=== PATIENT | male | born 1960 | race Hispanic/Latino ===

== ENCOUNTER 2018-01-29 11:22 | Emergency (ER) | payer SELFPAY ==
[2018-01-29] MEDS ORDERED: LIDOCAINE 1% MPF 5 ML VIAL ONE (13:20)
[2018-01-29] MEDS ORDERED: HYDROCODONE/APAP 5/325 MG TAB ONE (13:20)
[2018-01-29] MEDS ORDERED: TETANUS & DIPHTHERIA TOX,ADULT 0.5 ML VIAL ONE (13:21)
[2018-01-29] MEDS ORDERED: BUPIVACAINE 0.5% PF 10 ML VIAL ONE (13:21)
--- NOTE | 2018-01-29 13:24 | RAD REPORT ---
EXAM DESCRIPTION: RAD -Hand Left 3 View - 01/29/2018 12:51 pm CLINICAL HISTORY: Left hand pain status post injury FINDINGS: Comminuted fracture involves second distal phalanx with many fracture fragments. No disloc ation is seen. 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
--- NOTE | 2018-01-29 16:05 | ER ---
Nurse's Notes [facility] Name: Shamika Randall Age: 57 yrs Sex: Male : 1960 Arrival Date: 01/29/2018 Time: 11:25 Bed 14 Private MD: Diagnosis: Laceration without foreign body of left index finger without damage to nail;Displaced fracture of distal phalanx of left index finger Presentation: 01/29 11:46 Presenting complaint: Patient states: Laceration to left index finger with cordless saw hb approx 2 hrs ago. Transition of care: patient was not received from another setting of care. Onset of symptoms was January 29, 2018. Risk Assessment: Do you want to hurt yourself or someone else? Patient reports no desire to harm self or others. Care prior to arrival: None. 11:46 Method Of Arrival: Ambulatory hb 11:46 Acuity: WING 3 hb 12:59 Complicating Factors: There are no complicating factors for this patient. Initial ph Sepsis Screen: Does the patient meet any 2 criteria? No. Patient's initial sepsis screen is negative. Does the patient have a suspected source of infection? No. Patient's initial sepsis screen is negative. Historical: - Allergies: 11:47 No Known Allergies; hb - Immunization history:: Last tetanus immunization: unknown. - Social history:: Smoking status: Patient/guardian denies using tobacco. - Ebola Screening: : No symptoms or risks identified at this time. Screenin:59 Abuse screen: Denies threats or abuse. Denies injuries from another. Nutritional ph screening: No deficits noted. Tuberculosis screening: No symptoms or risk factors identified. Fall Risk None identified. Assessment: 12:58 General: Appears in no apparent distress. comfortable, well groomed, Behavior is calm, ph cooperative, appropriate for age. Pain: Complains of pain in palmar aspect of distal phalanx of left index finger. Neuro: Level of Consciousness is awake, Oriented to person, place, time, situation. Cardiovascular: Capillary refill < 3 seconds Patient's skin is warm and dry. Respiratory: Airway is patent Respiratory effort is even, unlabored, Respiratory pattern is regular, symmetrical. Derm: Skin is healthy with good turgor, Skin is pink, warm \T\ dry. Musculoskeletal: Circulation, motion, and sensation intact. Range of motion: intact in all extremities. Injury Description: Laceration sustained to palmar aspect of distal phalanx of left index finger is 0.5 to 2.5 cm long, not bleeding. 14:20 Reassessment: Patient appears in no apparent distress at this time. Patient and/or ph family updated on plan of care and expected duration. Pain level reassessed. Patient is alert, oriented x 3, equal unlabored respirations, skin warm/dry/pink. Pt resting quietly, SO at bedside. 15:40 Reassessment: Patient appears in no apparent distress at this time. Patient and/or ph family updated on plan of care and expected duration. Pain level reassessed. Patient is alert, oriented x 3, equal unlabored respirations, skin warm/dry/pink. ERP at bedside suturing laceration, pt tolerating well. 16:30 Reassessment: Patient appears in no apparent distress at this time. Patient and/or ph family updated on plan of care and expected duration. Pain level reassessed. Patient is alert, oriented x 3, equal unlabored respirations, skin warm/dry/pink. D/C pending 15 min shot time after IM antibiotics. Vital Signs: 11:47 BP 185 / 92; Pulse 58; Resp 18; Temp 98.6; Pulse Ox 98% ; Weight 102.06 kg; Height 5 hb ft. 10 in. (177.80 cm); Pain 5/10; 13:00 BP 178 / 89; Pulse 54; Resp 18; Pulse Ox 99% on R/A; ph 15:30 BP 164 / 78; Pulse 56; Resp 18; Temp 97.8; Pulse Ox 99% on R/A; ph 11:47 Body Mass Index 32.28 (102.06 kg, 177.80 cm) hb ED Course: 11:25 Patient arrived in ED. as 11:47 Triage completed. hb 11:48 Arm band placed on right wrist. hb 11:56 Chelsea Mukherjee, ERLIN is Primary Nurse. ph 12:18 Layo Malone NP is PHCP. pm1 12:18 Justus Stanton MD is Attending Physician. pm1 12:43 X-ray completed. Portable x-ray completed in exam room. Patient tolerated procedure ml well. 12:47 Hand Left 3 View XRAY In Process Unspecified. EDMS 13:00 Patient has correct armband on for positive identification. Call light in reach. Side ph rails up X 1. Pulse ox on. NIBP on. 16:04 Danny Stewart MD is Referral Physician. pm1 16:38 Dressings: non-adherent dressing x 1 left hand and palmar aspect of distal phalanx of jb1 left index finger. pre-formed finger splint applied to left index finger. Capillary refill was three seconds before and after application of finger splint. 16:55 No provider procedures requiring assistance completed. Patient did not have IV access ph during this emergency room visit. 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 Exp: ph 04/09/2020. Lot #: [id number]. } Route: IM; Site: right deltoid; 14:45 Follow up: Response: No adverse reaction ph 15:20 Drug: Lidocaine (1 %) 5 mg Route: Infiltration; ph 16:00 Follow up: Response: No adverse reaction ph 15:20 Drug: Marcaine (0.5 %) 10 ml Volume: 10 ml; Route: Infiltration; ph 16:00 Follow up: Response: No adverse reaction ph 16:30 Drug: Ancef 1 grams Route: IM; Site: right deltoid; ph 16:50 Follow up: Response: No adverse reaction ph Outcome: 16:05 Discharge ordered by . pm1 16:55 Patient left the ED. ss 16:55 Discharged to home ambulatory, with significant other. ph 16:55 Condition: good 16:55 Discharge instructions given to patient, significant other, Instructed on discharge instructions, follow up and referral plans. medication usage, wound care, Demonstrated understanding of instructions, follow-up care, medications, wound care, Prescriptions given X 3. Signatures: Dispatcher [employer] EDMS Robert Burnett jb1 Natacha Cheatham Melissa ml Smirch, Shelby, RN RN Chelsea Mukherjee RN RN Layo Malone, STEPHIE GENDER STUDIES PROFESSOR pm1 Kyleigh Beltran RN RN hb
--- NOTE | 2018-01-29 16:05 | EDPHYS ---
Physician Documentation [facility] Name: Shamika Randall Age: 57 yrs Sex: Male : 1960 Arrival Date: 01/29/2018 Time: 11:25 Bed 14 Private MD: ED Physician Justus Stanton HPI: 01/29 15:00 This 57 yrs old Male presents to ER via Ambulatory with complaints of pm1 Laceration - Finger. 15:00 The patient or guardian reports a laceration, irregular. The complaints affect the pm1 palmar aspect of distal phalanx of left index finger. Context: The problem was sustained at home, resulted from Circular saw. Onset: The symptoms/episode began/occurred just prior to arrival. Modifying factors: The symptoms are alleviated by pressure to area, the symptoms are aggravated by nothing. Associated signs and symptoms: Pertinent negatives: cyanosis distally, decreased sensation distally, numbness distally, tingling distally. Historical: - Allergies: 11:47 No Known Allergies; hb - Immunization history:: Last tetanus immunization: unknown. - Social history:: Smoking status: Patient/guardian denies using tobacco. - Ebola Screening: : No symptoms or risks identified at this time. ROS: 15:00 Constitutional: Negative for fever, chills, and weight loss, Cardiovascular: Negative pm1 for chest pain, palpitations, and edema, Respiratory: Negative for shortness of breath, cough, wheezing, and pleuritic chest pain, Abdomen/GI: Negative for abdominal pain, nausea, vomiting, diarrhea, and constipation, Back: Negative for injury and pain. 15:00 Neuro: Negative for headache, weakness, numbness, tingling, and seizure. 15:00 MS/extremity: Positive for laceration, of the palmar aspect of distal phalanx of left index finger, Negative for paresthesias, tingling. 15:00 Skin: Positive for laceration(s), of the palmar aspect of distal phalanx of left index finger. Exam: 15:00 Constitutional: This is a well developed, well nourished patient who is awake, alert, pm1 and in no acute distress. Head/Face: Normocephalic, atraumatic. Chest/axilla: Normal chest wall appearance and motion. Nontender with no deformity. No lesions are appreciated. Cardiovascular: Regular rate and rhythm with a normal S1 and S2. No gallops, murmurs, or rubs. Normal PMI, no JVD. No pulse deficits. Respiratory: Lungs have equal breath sounds bilaterally, clear to auscultation and percussion. No rales, rhonchi or wheezes noted. No increased work of breathing, no retractions or nasal flaring. Back: No spinal tenderness. No costovertebral tenderness. Full range of motion. 15:00 Skin: injury, laceration(s), the wound is approximately 3 cm(s), of the palmar aspect of distal phalanx of left index finger, that can be described as no foreign body, irregular. Vital Signs: 11:47 BP 185 / 92; Pulse 58; Resp 18; Temp 98.6; Pulse Ox 98% ; Weight 102.06 kg; Height 5 hb ft. 10 in. (177.80 cm); Pain 5/10; 13:00 BP 178 / 89; Pulse 54; Resp 18; Pulse Ox 99% on R/A; ph 15:30 BP 164 / 78; Pulse 56; Resp 18; Temp 97.8; Pulse Ox 99% on R/A; ph 11:47 Body Mass Index 32.28 (102.06 kg, 177.80 cm) hb Laceration: 16:02 Wound Repair of 3cm ( 1.2in ) subcutaneous laceration to palmar aspect of distal pm1 phalanx of left index finger. Irregularly shaped.. Distal neuro/vascular/tendon intact. Anesthesia: Digital block administered with 4 mls of L[place]/Marcaine. Wound prep: Extensive cleansing with betadine by me, Wound irrigation with saline by me, Wound explored extensively, Copious irrigation. Skin closed with 14 5-0 Prolene using simple sutures and sterile technique. Dressed with tube gauze. Patient tolerated well. MDM: 12:18 Patient medically screened. pm1 16:03 Data reviewed: vital signs. Data interpreted: Pulse oximetry: on room air is 98 %. pm1 Interpretation: normal. Counseling: I had a detailed discussion with the patient and/or guardian regarding: the historical points, exam findings, and any diagnostic results supporting the discharge/admit diagnosis, radiology results, the need for outpatient follow up, for definitive care, a hand specialist, to return to the emergency department if symptoms worsen or persist or if there are any questions or concerns that arise at home. 01/29 12:21 Order name: Hand Left 3 View XRAY; Complete Time: 13:43 pm1 01/29 13:16 Order name: Prolene, Sutures; Complete Time: 13:23 pm1 01/29 13:16 Order name: Dressing - Wound; Complete Time: 16:40 pm1 01/29 13:16 Order name: Gloves, Sterile; Complete Time: 13:23 pm1 01/29 13:16 Order name: Setup Suture Tray; Complete Time: 14:31 pm1 01/29 16:05 Order name: Splint - Finger; Complete Time: 16:40 pm1 Administered Medications: 13:22 Drug: [place] 5 mg-325 mg 1 tabs Route: PO; ph 14:30 Follow up: Response: No adverse reaction; Pain is decreased ph 14:30 Drug: Tetanus-Diphtheria Toxoid Adult 0.5 ml {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 Exp: ph 04/09/2020. Lot #: [id number]. } Route: IM; Site: right deltoid; 14:45 Follow up: Response: No adverse reaction ph 15:20 Drug: Lidocaine (1 %) 5 mg Route: Infiltration; ph 16:00 Follow up: Response: No adverse reaction ph 15:20 Drug: Marcaine (0.5 %) 10 ml Volume: 10 ml; Route: Infiltration; ph 16:00 Follow up: Response: No adverse reaction ph 16:30 Drug: Ancef 1 grams Route: IM; Site: right deltoid; ph 16:50 Follow up: Response: No adverse reaction ph Disposition: 01/30 10:50 Co-signature as Attending Physician, Justus Stanton MD I agree with the assessment and fernando plan of care. Disposition: 01/29/18 16:05 Discharged to Home. Impression: Laceration without foreign body of left index finger without damage to nail, Displaced fracture of distal phalanx of left index finger. - Condition is Stable. - Discharge Instructions: Finger Fracture, Laceration Care, Adult, [id number]. - Prescriptions for Keflex 500 mg Oral Capsule - take 1 capsule by ORAL route every 12 hours for 10 days; 20 capsule. Tylenol- Codeine #3 300-30 mg Oral Tablet - take 2 tablets by ORAL route every 6 hours As needed; 20 tablet. Bactrim DS 800- 160 mg Oral Tablet - take 1 tablet by ORAL route every 12 hours for 10 days; 20 tablet. - Family Work Release, Medication Reconciliation Form, Thank You Letter, Antibiotic Education, Prescription Opioid Use form. - Follow up: Emergency Department; When: As needed; Reason: Worsening of condition. Follow up: Danny Stewart MD; When: 1 - 2 days; Reason: Recheck today's complaints, Continuance of care, Re-evaluation by your physician. - Problem is new. - Symptoms have improved. Signatures: Dispatcher [employer] EDMS Justus Stanton MD MD cha Smirch, Shelby, RN RN ss Chelsea Mukherjee RN RN Layo Malone, STEPHIE PLASTERER [employer]UCC[employer] pm1 Kyleigh Beltran RN RN Corrections: (The following items were deleted from the chart) 01/29 16:55 16:05 01/29/2018 16:05 Discharged to Home. Impression: Laceration without foreign body ss of left index finger without damage to nail; Displaced fracture of distal phalanx of left index finger. Condition is Stable. Forms are Medication Reconciliation Form, Thank You Letter, Antibiotic Education, Prescription Opioid Use. Follow up: Emergency Department; When: As needed; Reason: Worsening of condition. Follow up: Danny Stewart; When: 1 - 2 days; Reason: Recheck today's complaints, Continuance of care, Re-evaluation by your physician. Problem is new. Symptoms have improved. pm1
[2018-01-29] MEDS ORDERED: CEFAZOLIN SODIUM 1 GM/VIAL ONE (16:19)
[2018-01-29] MEDS ORDERED: WATER FOR INJ,STERILE 10 ML ONE (16:19)
== END 2018-01-29 16:55 | disposition home or self-care (01) ==
LOC: ER 11:22
PROC: 0JQK0ZZ Repair Left Hand Subcutaneous Tissue and Fascia, Open Approach (ICD-10-PCS; principal; 2018-01-29)
DX: S61.211A Laceration without foreign body of left index finger without damage to nail, initial encounter (principal); S62.631A Displaced fracture of distal phalanx of left index finger, initial encounter for closed fracture; W29.8XXA Contact with other powered hand tools and household machinery, initial encounter; Y93.89 Activity, other specified; Y92.009 Unspecified place in unspecified non-institutional (private) residence as the place of occurrence of the external cause; Z23 Encounter for immunization
CPT/HCPCS: 90714; 96372; 99284; J0690